=== PATIENT | male | born 1975 | race Caucasian/White ===

== ENCOUNTER 2023-04-02 08:30 | Emergency (ER) | payer BC, SELFPAY ==
[2023-04-02 08:36] VITALS: BP 132/78; PULSE 70; RESP 18; TEMP 36.9; O2SAT 99; BMI 22.1
--- NOTE | 2023-04-02 08:42 | XR_ITS ---
The [address] [address] Patient Name: CHARLETTE JASSO MRN: [id number] date: 1975 Sex: M Assigned Patient Location: ER Current Patient Location: ER Accession/Order Number: [id number] Exam Date: 04/02/2023 09:35 Report Date: 04/02/2023 09:58 At the request of: SONYA STUBBS Procedure: XR abdomen 1V EXAMINATION: XR abdomen 1V, [id number] HISTORY: pain COMPARISON: None. FINDINGS: Nonobstructive bowel gas pattern. No discrete pneumoperitoneum, pneumatosis, or portal venous gas within the limitations of this single view radiograph. No abnormal soft tissue calcifications. Stool burden is average. XR/XR abdomen 1V IMPRESSION: Negative exam. No etiology for abdominal pain demonstrated. Electronically authenticated by: RANJAN MEEHAN Date: 04/02/2023 09:58
--- NOTE | 2023-04-02 08:44 | ED_ITS ---
HPI - Abdominal Pain General Chief Complaint: Abdominal Pain Stated Complaint: STOMACH/ABDOMINAL PAIN Time Seen by Provider: 04/02/23 08:32 Source: patient Mode of arrival: walk-in Limitations: no limitations History of Present Illness HPI narrative: 47-year-old male presents for abdominal pain. He's been having this intermittently for weeks. 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 No trauma or food ingestion. He points to the area just below the umbilicus. Usually it'll last for thirty minutes or perhaps an hour and then it goes away and he's had it multiple times over the past several weeks. Related Data Previous Rx's Medication Instructions Recorded dicyclomine 10 mg capsule 10 mg PO QID PRN abdominal pain 04/02/23 #20 caps Allergies Allergy/AdvReac Type Severity Reaction Status Date / Time No Known Drug Allergies Allergy Verified 04/02/23 08:36 Review of Systems ROS Narrative A ten point review of systems is negative except as noted above. PFSH PFSH Social History Smoking status: Current every day smoker Exam Narrative Exam Narrative: Nurses note and vital signs reviewed and patient is not hypoxic. General: The patient appears uncomfortable. Skin: Warm, dry, no pallor noted. There is no rash noted. Head: Normocephalic, atraumatic Eye: Normal conjunctiva, no drainage Ears, Nose, Mouth, and Throat: oral mucosa is moist. Nares patent. Cardiovascular: Regular Rate and Rhythm Respiratory: Patient is in no distress, no accessory muscle use, lungs are clear to auscultation, no wheezing, rales or rhonchi Back: non-tender GI: Normal bowel sounds, mild tenderness to palpation just below the umbilicus. No distention. No mass. Musculoskeletal: The patient has no evidence of calf tenderness, no pitting edema, symmetrical pulses noted bilaterally Neurological: A&O, normal speech Psychiatric: Cooperative Constitutional Vital Signs, click to edit/add: Last Vital Signs Temp 98.5 F 04/02/23 08:36 Pulse 70 04/02/23 08:36 Resp 18 04/02/23 08:36 BP 132/78 04/02/23 08:36 Pulse Ox 99 04/02/23 08:36 O2 Del Method Room Air 04/02/23 08:36 Course Vital Signs Vital signs: Vital Signs Temperature 98.5 F 04/02/23 08:36 Pulse Rate 70 04/02/23 08:36 Respiratory Rate 18 04/02/23 08:36 Blood Pressure 132/78 04/02/23 08:36 Pulse Oximetry 99 04/02/23 08:36 Oxygen Delivery Method Room Air 04/02/23 08:36 Temperature 98.5 F 04/02/23 08:36 Pulse Rate 70 04/02/23 08:36 Respiratory Rate 18 04/02/23 08:36 Blood Pressure 132/78 04/02/23 08:36 Pulse Oximetry 99 04/02/23 08:36 Oxygen Delivery Method Room Air 04/02/23 08:36 MDM - Abdominal Pain MDM Narrative Medical decision making narrative: Enteritis is identified. No indication for an antibiotic. Findings are discussed thoroughly with the patient. Differential Diagnosis Differential diagnosis: Likely abdominal pain, acute appendicitis, calculus of kidney, constipation, diverticulitis, gastroenteritis, pancreatitis and small bowel obstruction Lab Data Attestation: I reviewed the patient's lab results. Labs: Lab Results 04/02/23 04/02/23 Range/Units 09:15 10:31 WBC 12.9 H (4.0-11.0) 10^3/uL RBC 5.21 (4.70-6.10) 10^6/uL Hgb 15.6 (14.0-18.0) g/dL Hct 47.5 (42.0-54.0) % MCV 91.2 (80.0-94.0) fL MCH 29.9 (25.9-34.0) pg MCHC 32.8 (29.9-35.2) g/dL RDW 13.0 (11.0-15.0) % Plt Count 290 (150-450) 10^3/uL MPV 9.0 L (9.5-13.5) fL Neut % (Auto) 60.7 (43.0-75.0) % Lymph % (Auto) 29.7 (20.5-60.0) % [place] % (Auto) 7.7 (1.7-12.0) % Eos % (Auto) 0.9 (0.9-7.0) % Baso % (Auto) 0.6 (0.2-2.0) % Neut # (Auto) 7.8 H (1.4-6.5) 10^3/uL Lymph # (Auto) 3.8 (1.2-3.8) 10^3/uL [place] # (Auto) 1.0 H (0.3-0.8) 10^3/uL Eos # (Auto) 0.1 (0.0-0.7) 10^3/uL Baso # (Auto) 0.1 (0.0-0.1) 10^3/uL Abs Immat Gran (auto) 0.05 H (0.00-0.03) 10^3/uL Imm/Tot Granulo (auto) 0.4 (0.0-0.5) % Sodium 141 (136-145) mmol/L Potassium 3.9 (3.5-5.1) mmol/L Chloride 104 (98-107) mmol/L Carbon Dioxide 25.7 (21.0-32.0) mmol/L Anion Gap 15.2 BUN 12.0 (7.0-18.0) mg/dL Creatinine 0.96 (0.70-1.30) mg/dL Est GFR ( Amer) >60 (>=60) Est GFR (Non-Af Amer) >60 (>=60) BUN/Creatinine Ratio 12.5 Glucose 124 H (74-106) mg/dL Calcium 9.4 (8.5-10.1) mg/dL Total Bilirubin 0.5 (0.2-1.0) mg/dL Direct Bilirubin 0.1 (0.0-0.2) mg/dL AST 15 (15-37) U/L ALT 18 (16-63) U/L Alkaline Phosphatase 67 (46-116) U/L Total Protein 7.5 (6.4-8.2) g/dL Albumin 4.1 (3.4-5.0) g/dL Globulin 3.4 g/dL Albumin/Globulin Ratio 1.2 Amylase 38 (25-115) U/L Lipase 44.0 L (73.0-393.0) U/L Urine Color Yellow (YELLOW) Urine Clarity Clear (CLEAR) Urine pH 5.0 (5.0-9.0) Ur Specific [place] >=1.030 A (1.005-1.025) Urine Protein Negative (NEG/TRACE) mg/dL Urine Glucose (UA) Negative (NEGATIVE) mg/dL Urine Ketones Trace A (NEGATIVE) mg/dL Urine Occult Blood Negative (NEGATIVE) Urine Nitrite Negative (NEGATIVE) Urine Bilirubin Negative (NEGATIVE) Urine Urobilinogen 0.2 (0.2-1.0) EU/dL Ur Leukocyte Esterase Negative (NEGATIVE) Imaging Data CT scan - abdomen: Radiologist's impression: suspected mild enteritis Discharge Plan Discharge Chief Complaint: Abdominal Pain Clinical Impression: Enteritis Patient Disposition: Home, Self-Care Time of Disposition Decision: 12:26 Condition: Good Mode of Transportation: Private Vehicle Prescriptions / Home Meds: New dicyclomine 10 mg capsule 10 mg PO QID PRN (Reason: abdominal pain) Qty: 20 0RF Instructions: Enteritis (ED) Stand Alone Forms: Portal Instructions Referrals: GLORIA IBARRA [Primary Care Provider] - 1 week
[2023-04-02] MEDS: ONDANSETRON 4 MG RAPDIS TABLET SL (09:16)
[2023-04-02 09:26] LABS: Basophils Absolute Auto 0.1 10^3/uL (0.0-0.1); Basophils Percent Auto 0.6 % (0.2-2.0); Eosinophils Absolute Auto 0.1 10^3/uL (0.0-0.7); Eosinophils Percent Auto 0.9 % (0.9-7.0); Hematocrit 47.5 % (42.0-54.0); Hemoglobin 15.6 g/dL (14.0-18.0); Immature Granulocytes Abs Auto 0.05 10^3/uL (0.00-0.03); Immature Granulocytes Pct Auto 0.4 % (0.0-0.5); Lymphocytes Absolute Auto 3.8 10^3/uL (1.2-3.8); Lymphocytes Percent Auto 29.7 % (20.5-60.0); Mean Corpuscular HGB Conc 32.8 g/dL (29.9-35.2); Mean Corpuscular Hemoglobin 29.9 pg (25.9-34.0); Mean Corpuscular Volume 91.2 fL (80.0-94.0); Monocytes Percent Auto 7.7 % (1.7-12.0); Neutrophils Absolute Auto 7.8 10^3/uL (1.4-6.5); Neutrophils Percent Auto 60.7 % (43.0-75.0); Platelet Count 290 10^3/uL (150-450); Red Blood Count 5.21 10^6/uL (4.70-6.10); White Blood Count 12.9 10^3/uL (4.0-11.0)
[2023-04-02 09:35] LABS: Alanine Aminotransferase 18 U/L (16-63); Albumin Globulin Ratio 1.2; Albumin Level 4.1 g/dL (3.4-5.0); Alkaline Phosphatase 67 U/L (46-116); Amylase 38 U/L (25-115); Anion Gap 15.2; Aspartate Amino Transferase 15 U/L (15-37); BUN Creatinine Ratio 12.5; Bilirubin Direct 0.1 mg/dL (0.0-0.2); Bilirubin Total 0.5 mg/dL (0.2-1.0); Calcium 9.4 mg/dL (8.5-10.1); Carbon Dioxide 25.7 mmol/L (21.0-32.0); Chloride 104 mmol/L (98-107); Estimated GFR (African America >60 (>=60); Estimated GFR (Non-African Ame >60 (>=60); Globulin 3.4 g/dL; Glucose 124 mg/dL (74-106); Potassium 3.9 mmol/L (3.5-5.1); Sodium 141 mmol/L (136-145); Total Protein 7.5 g/dL (6.4-8.2)
--- NOTE | 2023-04-02 10:34 | CT_ITS ---
The [address] [address] Patient Name: CHARLETTE JASSO MRN: [id number] date: 1975 Sex: M Assigned Patient Location: ER Current Patient Location: Accession/Order Number: [id number] Exam Date: 04/02/2023 11:10 Report Date: 04/02/2023 11:50 At the request of: SONYA STUBBS Procedure: CT abdomen pelvis w con EXAMINATION: CT abdomen pelvis w con HISTORY: low abd pain , umbilical region; diarrhea, nausea COMPARISON: No relevant comparison available. TECHNIQUE: Axial, Coronal, and Sagittal images were obtained without and/or with IV contrast as indicated by examination type. Dose reduction techniques were achieved by using automated exposure control and/or adjustment of mA and/or kV according to patient size and/or use of iterative reconstruction technique. FINDINGS: LUNG BASES: No visible pulmonary or pleural disease. LIVER: No enlargement, atrophy, suspicious density, or significant focal lesion. BILIARY: No dilatation or calcification. PANCREAS: No lesion, fluid collection, or abnormal duct dilatation. SPLEEN: No enlargement or focal lesion. ADRENALS: No mass or enlargement. KIDNEYS: No mass, obstruction, or calcification. BOWEL/MESENTERY: Fluid-filled loops of mid and distal small bowel without abnormal dilation. Long segment of slight wall thickening of distal small bowel; nonspecific. Normal appendix. AORTA/VASCULAR: No aneurysm or dissection. RETROPERITONEUM: No mass or adenopathy. LYMPH NODES: No adenopathy. URINARY BLADDER: No visible focal wall thickening, lesion, or calculus. PELVIC ORGANS: No visible mass. Pelvic organs appropriate for patient age. ABDOMINAL WALL: No mass or hernia. BONES: No bony lesion or fracture. OTHER: Negative. CT/CT abdomen pelvis w con IMPRESSION: 1.Suspect mild enteritis. No bowel obstruction or ileus. Electronically authenticated by: SURINDER SILVA Date: 04/02/2023 11:50
[2023-04-02 11:26] LABS: Bilirubin Urine NEGATIVE (NEGATIVE); Blood Urine NEGATIVE (NEGATIVE); Clarity Urine CLEAR (CLEAR); Color Urine YELLOW (YELLOW); Glucose Urine UA NEGATIVE (NEGATIVE); Ketones Urine TRACE mg/dL (NEGATIVE); Leukocyte Esterase Urine NEGATIVE (NEGATIVE); Nitrite Urine NEGATIVE (NEGATIVE); Protein Urine NEGATIVE (NEG/TRACE); Specific Gravity Urine >=1.030 (1.005-1.025); Urobilinogen Urine 0.2 EU/dL (0.2-1.0)
[2023-04-02 11:28] LABS: Urine Microscopic Indicated NO
== END 2023-04-02 12:42 | disposition home or self-care (01) ==
PROVIDERS: Emergency Provider Emergency Medicine; PCP Nurse Practitioner Family
DX: K52.9 Noninfective gastroenteritis and colitis, unspecified (principal); F17.210 Nicotine dependence, cigarettes, uncomplicated
CPT/HCPCS: 36415; 74018; 74177; 80048; 80076; 81003; 82150; 83690; 85025; 99285; Q9967

== ENCOUNTER 2023-06-05 22:58 | Emergency (ER) | payer BC, SELFPAY ==
[2023-06-05 23:04] VITALS: BP 132/91; PULSE 89; RESP 18; TEMP 36.7; O2SAT 98; BMI 18.5
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
[2023-06-06] MEDS: HYDROCODONE/ACET 5-325 MG TABLET 4 TAB PO (00:18)
[2023-06-06] MEDS: SILVER SULFADIAZINE 1% CREAM 25 GM TUBE 1 APPLIC TOPICAL (00:18)
== END 2023-06-06 00:30 | disposition home or self-care (01) ==
PROVIDERS: Emergency Provider Internal Medicine
DX: T21.25XA Burn of second degree of buttock, initial encounter (principal); X08.8XXA Exposure to other specified smoke, fire and flames, initial encounter; F17.210 Nicotine dependence, cigarettes, uncomplicated
CPT/HCPCS: 99283

== ENCOUNTER 2023-10-09 14:51 | Emergency (ER) | payer SELFPAY ==
[2023-10-09 15:03] VITALS: BP 138/85; PULSE 81; RESP 20; TEMP 36.8; O2SAT 99; BMI 29.5
--- NOTE | 2023-10-09 15:15 | XR_ITS ---
The [address] [address] Patient Name: CHARLETTE JASSO MRN: [id number] date: 1975 Sex: M Assigned Patient Location: ER Current Patient Location: ER Accession/Order Number: [id number] Exam Date: 10/09/2023 15:58 Report Date: 10/09/2023 16:22 At the request of: QUINTIN THOMAS Procedure: XR chest 1V EXAM: XR chest 1V HISTORY: . sob . COMPARISON: 05/31/2021 TECHNIQUE: Single view of the chest FINDINGS: Heart and vascularity are unremarkable. Lungs are free of focal infiltrates. EKG leads overlie the chest. XR/XR chest 1V IMPRESSION: No acute heart or lung disease identified. Electronically authenticated by: RODO YOUNG Date: 10/09/2023 16:22
--- NOTE | 2023-10-09 15:15 | ECG_ITS ---
The [facility] Test Date: 2023-10-09 Pat Name: CHARLETTE JASSO Department: Room: - Gender: Male Tufter: : 1975 Requested By: Order Number: [id number] Reading MD: JASIEL MAR Measurements Intervals [place] Rate: 80 P: 79 IN: 132 QRS: 90 QRSD: 78 T: 78 QT: 382 QTc: 418 Interpretive Statements 1100 Sinus rhythm 1970 with occasional ectopic premature complexes 9140 abnormal rhythm ECG Electronically Signed On 10-10-2023 7:31:51 EST by JASIEL MAR
--- NOTE | 2023-10-09 15:18 | ED.GENADUL1 ---
HPI - General Adult General Chief complaint: Shortness of Breath/Dyspnea Stated complaint: SOB Time Seen by Provider: 10/09/23 15:08 Source: patient Mode of arrival: walk-in History of Present Illness HPI narrative: Patient is a 47-year-old male who is presenting to the ER with 3 to 4-day history of upper respiratory/bronchitis-like symptoms. Patient was coughing forcefully today, patient had a syncopal episode after coughing. Patient was at home today, patient had a forceful episode of coughing, patient then had a syncopal episode. Patient had no fall, no head injury. Patient takes no blood thinners. Patient's PCP is Neena Burgos, he saw Dr. Burgos a few weeks ago in [place]. Patient has a long-standing history of smoking. Patient currently has no headache or neck pain. No chest pain, mild shortness of breath. Patient feels like he has muscle skeletal chest wall pain after coughing. No abdominal pain, nausea or vomiting, no other acute complaints. All systems are negative except as noted/marked. All systems reviewed and otherwise negative. Nurses note and vital signs reviewed and patient is not hypoxic. General: The patient appears Mild respiratory distress with increased respiratory rate and coughing. Patient is resting comfortably on cart. Patient is not toxic, lethargic, or listless Skin: Warm, dry, no pallor noted. There is no rash noted. No petechiae, purpura. Head: Normocephalic, atraumatic Eye: Normal conjunctiva, no drainage, EOMI. PERRL Ears, Nose, Mouth, and Throat: oral mucosa is moist. Clear drainage noted to the posterior pharynx, no unilateral swelling. Nares patent. Mouth without vesicles. Cardiovascular: Regular Rate and Rhythm, no murmur, gallop, rub Respiratory: Patient is in Mild respiratory distress, patient has diffuse wheezing bilateral, increased respiratory rate, no crackles, rales or rhonchi bilateral. Barrell chested. Back: non-tender, no CVA tenderness bilaterally to percussion. No CT LS midline pain GI: no tenderness to palpation, no masses appreciated. No rebound, guarding, or rigidity noted. No distention Musculoskeletal: Patient has full range of motion of all of the extremities, no motor, sensory, or focal neurological deficits Neurological: A&O x4, normal speech Psychiatric: Cooperative Related Data Previous Rx's Medication Instructions Recorded dicyclomine 10 mg capsule 10 mg PO QID PRN abdominal pain 04/02/23 #20 caps albuterol sulfate 90 mcg/actuation 2 inh inhalation Q4H PRN shortness 10/09/23 aerosol inhaler of breath or wheezing 7 days #8.5 grams benzonatate 100 mg capsule 200 mg (2 x 100 mg) PO TID PRN 10/09/23 cough #20 caps methylprednisolone 4 mg tablets in 4 mg PO DAILY 6 days #21 ea 10/09/23 a dose pack (Medrol (Ant)) Allergies Allergy/AdvReac Type Severity Reaction Status Date / Time No Known Drug Allergies Allergy Verified 06/05/23 23:09 [facility] Social History Smoking status: Current every day smoker Exam Constitutional Vital Signs, click to edit/add: Last Vital Signs Temp 98.2 F 10/09/23 15:03 Pulse 80 10/09/23 15:42 Resp 20 10/09/23 15:03 BP 138/85 10/09/23 15:03 Pulse Ox 100 10/09/23 15:42 O2 Del Method Room Air 10/09/23 15:42 Course Vital Signs Vital signs: Vital Signs Temperature 98.2 F 10/09/23 15:03 Pulse Rate 81 10/09/23 15:03 Respiratory Rate 20 10/09/23 15:03 Blood Pressure 138/85 10/09/23 15:03 Pulse Oximetry 99 10/09/23 15:03 Temperature 98.2 F 10/09/23 15:03 Pulse Rate 80 10/09/23 15:42 Respiratory Rate 20 10/09/23 15:03 Blood Pressure 138/85 10/09/23 15:03 Pulse Oximetry 100 10/09/23 15:42 Oxygen Delivery Method Room Air 10/09/23 15:42 Medical Decision Making MDM Narrative Medical decision making narrative: Patient's EKG and chest patient no acute findings. Patient's lab work showed no acute findings, patient felt better after IV fluids and breathing treatments. Patient was given a dose of steroid in the Emergency Room. Education treatment of upper respiratory bronchitis triggering chronic obstructive pulmonary disease exacerbation was done at bedside and on discharge paperwork. It seems the patient had a forceful coughing episodes that caused the syncope. Patient is clear if patient continues to have episodes of syncope to follow-up with PCP for further cardiiac or neurological testing. Patient understands this, no questions at discharge. Lab Data Lab results reviewed: Yes I reviewed the patient's lab results Labs: Lab Results 10/09/23 Range/Units 15:16 WBC 6.4 (4.0-11.0) 10^3/uL RBC 5.33 (4.70-6.10) 10^6/uL Hgb 16.4 (14.0-18.0) g/dL Hct 49.2 (42.0-54.0) % MCV 92.3 (80.0-94.0) fL MCH 30.8 (25.9-34.0) pg MCHC 33.3 (29.9-35.2) g/dL RDW 14.1 (11.0-15.0) % Plt Count 235 (150-450) 10^3/uL MPV 10.2 (9.5-13.5) fL Neut % (Auto) 59.1 (43.0-75.0) % Lymph % (Auto) 28.1 (20.5-60.0) % [place] % (Auto) 11.4 (1.7-12.0) % Eos % (Auto) 0.6 L (0.9-7.0) % Baso % (Auto) 0.6 (0.2-2.0) % Neut # (Auto) 3.8 (1.4-6.5) 10^3/uL Lymph # (Auto) 1.8 (1.2-3.8) 10^3/uL [place] # (Auto) 0.7 (0.3-0.8) 10^3/uL Eos # (Auto) 0.0 (0.0-0.7) 10^3/uL Baso # (Auto) 0.0 (0.0-0.1) 10^3/uL Abs Immat Gran (auto) 0.01 (0.00-0.03) 10^3/uL Imm/Tot Granulo (auto) 0.2 (0.0-0.5) % VBG pH 7.445 H (7.330-7.430) VBG pCO2 42.4 (40.0-52.0) mmHg Sodium 139 (136-145) mmol/L Potassium 3.7 (3.5-5.1) mmol/L Chloride 103 (98-107) mmol/L Carbon Dioxide 28.5 (21.0-32.0) mmol/L Anion Gap 11.2 BUN 13.0 (7.0-18.0) mg/dL Creatinine 0.94 (0.70-1.30) mg/dL Est GFR ( Amer) >60 (>=60) Est GFR (Non-Af Amer) >60 (>=60) BUN/Creatinine Ratio 13.8 Glucose 123 H (74-106) mg/dL Calcium 9.5 (8.5-10.1) mg/dL Total Bilirubin 0.5 (0.2-1.0) mg/dL AST 49 H (15-37) U/L ALT 77 H (16-63) U/L Alkaline Phosphatase 73 (46-116) U/L Troponin I High Sens 5.1 (4.0-76.1) pg/mL NT-Pro-B Natriuret Pep 29.0 (<=450.0) pg/mL Total Protein 7.4 (6.4-8.2) g/dL Albumin 3.7 (3.4-5.0) g/dL Globulin 3.7 g/dL Albumin/Globulin Ratio 1.0 ECG Data Attestation: I personally reviewed and interpreted this ECG as follows: (EKG interpretation. Normal sinus rhythm at 80 beats a minute. Normal axis deviation. No acute ST elevation, no acute ectopy. QTc of 418) Discharge Plan Discharge Chief Complaint: Shortness of Breath/Dyspnea Clinical Impression: Tobacco abuse counseling, URI (upper respiratory infection), Syncope, Tobacco abuse, Bronchitis Patient Disposition: Home, Self-Care Condition: Fair Prescriptions / Home Meds: New benzonatate 100 mg capsule 200 mg PO TID PRN (Reason: cough) Qty: 20 0RF methylprednisolone [Medrol (Ant)] 4 mg tablets,dose pack 4 mg PO DAILY 6 Days Qty: 21 0RF Rx Instructions: as directed albuterol sulfate 90 mcg/actuation HFA aerosol inhaler 2 inh inhalation Q4H PRN (Reason: shortness of breath or wheezing) 7 Days Qty: 8.5 0RF No Action dicyclomine 10 mg capsule 10 mg PO QID PRN (Reason: abdominal pain) Qty: 20 0RF Instructions: How to Stop Smoking (ED), Syncope (ED), Upper Respiratory Infection (ED), Acute Bronchitis (ED) Additional Instructions: Use inhaler every 4 hours while awake. Increase fluids at home, Gatorade, Powerade, or water. Alternate using DayQuil, NyQuil, and Flonase. At Mucinex as well as needed. Alternate Tylenol and Motrin every 4 hours to help with fever control, body aches or joint pain. Use [id number] vitamin C, vitamin D3, and zinc to help fight infection and help with her immune system. If you continue to have syncopal episodes, follow-up with PCP and be referred to cardiology or neurology as needed. Increase fluids Stand Alone Forms: Portal Instructions Referrals: Physician,Non-Staff, MD [Primary Care Provider] - 1 week Discharge Date/Time: 10/09/23 17:15
[2023-10-09 15:37] LABS: Basophils Percent Auto 0.6 % (0.2-2.0); Eosinophils Percent Auto 0.6 % (0.9-7.0); Hematocrit 49.2 % (42.0-54.0); Hemoglobin 16.4 g/dL (14.0-18.0); Immature Granulocytes Abs Auto 0.01 10^3/uL (0.00-0.03); Immature Granulocytes Pct Auto 0.2 % (0.0-0.5); Lymphocytes Absolute Auto 1.8 10^3/uL (1.2-3.8); Lymphocytes Percent Auto 28.1 % (20.5-60.0); Mean Corpuscular HGB Conc 33.3 g/dL (29.9-35.2); Mean Corpuscular Hemoglobin 30.8 pg (25.9-34.0); Mean Corpuscular Volume 92.3 fL (80.0-94.0); Mean Platelet Volume 10.2 fL (9.5-13.5); Monocytes Absolute Auto 0.7 10^3/uL (0.3-0.8); Monocytes Percent Auto 11.4 % (1.7-12.0); Neutrophils Absolute Auto 3.8 10^3/uL (1.4-6.5); Neutrophils Percent Auto 59.1 % (43.0-75.0); Platelet Count 235 10^3/uL (150-450); Red Blood Count 5.33 10^6/uL (4.70-6.10); Red Cell Distribution Width 14.1 % (11.0-15.0); White Blood Count 6.4 10^3/uL (4.0-11.0)
[2023-10-09] MEDS: 0.9 % SODIUM CHLORIDE 1,000 ML 1000 ML IV (15:37)
[2023-10-09] MEDS: METHYLPREDNISOLONE SOD SUCC PF 125 MG/2 ML VIAL IVP (15:37)
[2023-10-09 15:41] LABS: PCO2 VBG 42.4 mmHg (40.0-52.0); pH VBG 7.445 (7.330-7.430)
[2023-10-09] MEDS: IPRATROPIUM/ALBUTEROL SULFATE 3 ML AMPUL.NEB 6 ML IH (15:41)
[2023-10-09 15:42] VITALS: PULSE 80; O2SAT 100
[2023-10-09 15:58] LABS: Anion Gap 11.2
[2023-10-09 16:05] LABS: Alanine Aminotransferase 77 U/L (16-63); Albumin Level 3.7 g/dL (3.4-5.0); Alkaline Phosphatase 73 U/L (46-116); Aspartate Amino Transferase 49 U/L (15-37); BUN Creatinine Ratio 13.8; Bilirubin Total 0.5 mg/dL (0.2-1.0); Calcium 9.5 mg/dL (8.5-10.1); Carbon Dioxide 28.5 mmol/L (21.0-32.0); Chloride 103 mmol/L (98-107); Estimated GFR (African America >60 (>=60); Estimated GFR (Non-African Ame >60 (>=60); Globulin 3.7 g/dL; Glucose 123 mg/dL (74-106); Potassium 3.7 mmol/L (3.5-5.1); Sodium 139 mmol/L (136-145); Total Protein 7.4 g/dL (6.4-8.2); Troponin I High Sensitivity 5.1 pg/mL (4.0-76.1)
== END 2023-10-09 17:15 | disposition home or self-care (01) ==
PROVIDERS: Emergency Provider Emergency Medicine
DX: R55 Syncope and collapse (principal); J06.9 Acute upper respiratory infection, unspecified; J40 Bronchitis, not specified as acute or chronic; F17.210 Nicotine dependence, cigarettes, uncomplicated; R06.02 Shortness of breath
CPT/HCPCS: 36415; 71045; 80053; 82800; 83880; 84484; 85025; 93005; 94640; 96374; 99285; J2930